=== PATIENT | male | born 1990 | race Caucasian/White ===

== ENCOUNTER 2023-11-14 17:26 | Inpatient (IN) | payer OTHER ==
[2023-11-14 17:55] VITALS: BMI 24.3
[2023-11-14] MEDS ORDERED: chlordiazePOXIDE HCL 25 MG CAPSULE PO PRN (18:22)
[2023-11-14] MEDS ORDERED: BENZOCAINE/MENTHOL (CHLORASEPTIC ) LOZENGE MM PRN (18:31)
[2023-11-14] MEDS ORDERED: POLYETHYLENE GLYCOL (HEALTHYLAX) 3350 17 GM PACKET PO PRN (18:31)
[2023-11-14] MEDS ORDERED: BISMUTH SUBSALICYLATE 524 MG/30 ML PO PRN (18:31)
[2023-11-14] MEDS ORDERED: guaiFENesin 600 MG TABLET.ER (FP) PO PRN (18:31)
[2023-11-14] MEDS ORDERED: MAG HYDROX/AL HYDROX/SIMETH 30 ML UNIT-DOSE CUP PO PRN (18:31)
[2023-11-14] MEDS ORDERED: ONDANSETRON *ODT* 4 MG TABLET SL PRN (18:31)
[2023-11-14] MEDS ORDERED: BENZONATATE 200 MG CAPSULE PO PRN (18:31)
[2023-11-14] MEDS ORDERED: ACETAMINOPHEN 325 MG TABLET (FP) PO PRN (18:31)
[2023-11-14] MEDS ORDERED: DICYCLOMINE HCL 10 MG CAPSULE PO PRN (18:31)
[2023-11-14] MEDS ORDERED: MAGNESIUM HYDROX 2400MG/30ML ORAL SUSPENSION 30 ML CUP PO PRN (18:31)
[2023-11-14] MEDS ORDERED: chlordiazePOXIDE HCL 25 MG CAPSULE ONE (19:12)
[2023-11-14] MEDS ORDERED: METOPROLOL TARTRATE 25 MG TABLET (FP) ONE (19:12)
[2023-11-14] MEDS: chlordiazePOXIDE HCL 25 MG CAPSULE PO ONE (19:15)
[2023-11-14] MEDS: METOPROLOL TARTRATE 25 MG TABLET (FP) PO ONE (19:15)
[2023-11-14] MEDS: LIDOCAINE 4% PATCH TP SCH (20:27)
[2023-11-14] MEDS: LIDOCAINE PATCH REMOVAL MC SCH (21:41)
[2023-11-14] MEDS: THIAMINE HCL 100 MG TABLET (FP) PO SCH (22:09)
[2023-11-14] MEDS: chlordiazePOXIDE HCL 25 MG CAPSULE PO SCH (22:09)
[2023-11-14] MEDS: MELATONIN 5 MG TABLETS PO SCH (22:09)
[2023-11-15] MEDS: PRENATAL VITAMINS W/ FOLIC ACID TABLET (FP) PO SCH (10:13)
[2023-11-15] MEDS: METHOCARBAMOL 500 MG TABLET PO PRN (10:15)
[2023-11-15 12:20] LABS: HEMATOCRIT 40.3 % (35.4-49); HEMOGLOBIN 12.9 GM/dL (11.7-16.9); MCH 27.6 pg (25.7-33.7); MEAN CELL VOLUME 86.3 fl (80-96); MEAN PLT VOLUME 7.7 fl (7.5-11.1); PLATELET COUNT 105 10^3/uL (134-434); RBC 4.66 M/mm3 (4.00-5.60); RDW 15.3 % (11.9-15.9); WHITE BLOOD COUNT 4.6 K/mm3 (4.0-10.0)
[2023-11-15 13:22] LABS: POTASSIUM 3.4 mmol/L (3.5-5.1)
[2023-11-15 13:49] LABS: TOT PROT 6.9 g/dl (6.4-8.2)
[2023-11-15 14:02] LABS: ALBUMIN 3.8 g/dl (3.4-5.0); BLOOD UREA NITROGEN 11.9 mg/dL (7-18)
[2023-11-15 14:06] LABS: CREATININE 0.8 mg/dL (0.55-1.3)
[2023-11-15 14:08] LABS: BILIRUBIN,TOTAL 1.5 mg/dL (0.2-1)
[2023-11-16] MEDS: chlordiazePOXIDE HCL 25 MG CAPSULE PO SCH (05:29)
[2023-11-16] MEDS: POTASSIUM CHLORIDE ORAL LIQUID 20 MEQ/15 ML PO ONE ×2 (10:01→15:19)
[2023-11-16] MEDS: LOPERAMIDE HCL 2 MG CAPSULE PO PRN (17:24)
[2023-11-17] MEDS ORDERED: chlordiazePOXIDE HCL 10 MG CAPSULE PO PRN
[2023-11-17] MEDS: chlordiazePOXIDE HCL 10 MG CAPSULE PO SCH (05:37)
[2023-11-17 10:38] LABS: POTASSIUM 3.8 mmol/L (3.5-5.1)
[2023-11-17 10:44] LABS: CALCIUM 8.9 mg/dL (8.5-10.1)
[2023-11-17 10:45] LABS: BLOOD UREA NITROGEN 9.9 mg/dL (7-18)
[2023-11-17 10:48] LABS: CREATININE 0.8 mg/dL (0.55-1.3)
[2023-11-17] MEDS: ACETAMINOPHEN 325 MG TABLET (FP) PO PRN (12:50)
[2023-11-17 13:22] VITALS: BP 134/82; PULSE 98; RESP 16; TEMP 98.7
[2023-11-18] MEDS ORDERED: chlordiazePOXIDE HCL 10 MG CAPSULE PO SCH (05:00)
[2023-11-19] MEDS ORDERED: chlordiazePOXIDE HCL 10 MG CAPSULE PO ONE (05:00)
== END 2023-11-17 14:49 | disposition left against medical advice (07) | DRG 770 ==
LOC: YASAS 17:26 → Y3N 19:25
PROVIDERS: ADMIT Allergy & Immunology; ATTEND Surgery
PROC: HZ2ZZZZ Detoxification Services for Substance Abuse Treatment (ICD-10-PCS; principal; 2023-11-14)
DX: F10.230 Alcohol dependence with withdrawal, uncomplicated (principal); E87.6 Hypokalemia; Z87.448 Personal history of other diseases of urinary system
CPT/HCPCS: 36415; 80048; 80053; 80305; 85027; 86780; 93005; 93010